=== PATIENT | male | born 1980 | race Two or more races ===

== ENCOUNTER 2021-10-19 04:50 | Emergency (ER) | payer BC ==
[~2021-10-19] VITALS: Ht 177.8 cm; Wt 74.8 kg
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
[2021-10-19] MEDS ORDERED: TDAP [DIPH/PERTUSSIS/TET] 0.5 ML VIAL IM ONE ×2 (06:30→06:43)
[2021-10-19] MEDS ORDERED: LIDOCAINE 2% 20 ML MDV ONE (06:32)
--- NOTE | 2021-10-19 06:44 | NUR ---
DR PORFIRIO PARK AT PT'S BEDSIDE
--- NOTE | 2021-10-19 08:24 | NUR ---
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
[2021-10-19] MEDS ORDERED: AMOX/CLAVULANATE 875 MG TABLET PO ONE (09:00)
[2021-10-19] MEDS ORDERED: AMOX-430 PO (09:11)
[2021-10-19] MEDS ORDERED: AMOX/CLAVULANATE 875 MG TABLET ONE (09:15)
[2021-10-19 09:17] VITALS: BP 112/58
--- NOTE | 2021-10-19 09:17 | NUR ---
Patient discharged to home in stable condition. Written and verbal after care instructions given. Patient verbalizes understanding of instruction.
== END 2021-10-19 09:19 | disposition home or self-care (01) ==
LOC: ER 05:09
DX: S31.31XA Laceration without foreign body of scrotum and testes, initial encounter (principal); Y04.0XXA Assault by unarmed brawl or fight, initial encounter; Y93.89 Activity, other specified; Y92.89 Other specified places as the place of occurrence of the external cause; Y99.8 Other external cause status
CPT/HCPCS: 12002; 76870; 90471; 90715; 99284; A6403; J3490